=== PATIENT | male | born 1980 | race Two or more races ===

== ENCOUNTER → 2017-01-01 | Outpatient (CLI) | payer OTHER ==
[~2017-01-01] MED LIST: None per pt
== END | disposition home or self-care (01) ==
LOC: STAR 15:24
PROVIDERS: ATTEND Surgery
DX: Z02.9 Encounter for administrative examinations, unspecified (principal)

== ENCOUNTER 2017-01-10 06:01 | Day surgery (SDC) | payer OTHER ==
[~2017-01-10] VITALS: Ht 175.3 cm; Wt 76.4 kg
[2017-01-10 06:57] VITALS: BP 116/73
[2017-01-10] MEDS ORDERED: LACTATED RINGERS 1,000 ML IV SCH (06:59)
[2017-01-10] MEDS ORDERED: LIDOCAINE 1%, 2ML SQ PRN (07:00)
[2017-01-10] MEDS ORDERED: EPINEPHRINE 1 MG/ML, 1ML ONE (08:32)
[2017-01-10] MEDS ORDERED: BUPIVACAINE/PF 0.5% ONE ×2 (08:32)
[2017-01-10] MEDS ORDERED: FENTANYL PF 100 MCG/2ML ONE ×2 (08:58)
[2017-01-10] MEDS ORDERED: MIDAZOLAM 1 MG/ML, 2ML ONE (08:59)
[2017-01-10] MEDS ORDERED: ROCURONIUM 10 MG/ML ONE (09:00)
[2017-01-10] MEDS ORDERED: DEXAMETHASONE 4 MG/ML, 1ML ONE (09:00)
[2017-01-10] MEDS ORDERED: NEOSTIGMINE 1 MG/ML, 10ML ONE (09:00)
[2017-01-10] MEDS ORDERED: SUCCINYLCHOLINE 20 MG/ML, 10ML ONE (09:00)
[2017-01-10] MEDS ORDERED: CEFAZOLIN 1,000 MG ONE (09:00)
[2017-01-10] MEDS ORDERED: GLYCOPYRROLATE 0.2MG/1ML, 5ML ONE (09:00)
[2017-01-10] MEDS ORDERED: ONDANSETRON 2MG/ML, 2ML ONE ×2 (09:00→10:11)
[2017-01-10] MEDS ORDERED: PROPOFOL 10 MG/ML, 20ML ONE (09:00)
[2017-01-10] MEDS ORDERED: LIDOCAINE-MPF 2% ,5ML ONE (09:02)
[2017-01-10] MEDS ORDERED: KETOROLAC 30 MG/1 ML ONE (09:16)
[2017-01-10] MEDS ORDERED: BUPIVACAINE/PF-EPI 0.5% 1:200K INFIL ONE (09:26)
[2017-01-10] MEDS ORDERED: DIAZEPAM 5 MG/ML, 2ML IVPush PRN (09:30)
[2017-01-10] MEDS ORDERED: HYDROmorphone 1 MG/ML, 1ML IV PRN (09:30)
[2017-01-10] MEDS ORDERED: LABETALOL 5MG/ML, 20ML IV PRN (09:30)
[2017-01-10] MEDS ORDERED: OXYcodone 5 MG/5 ML ORAL.SOL UDC PO PRN (09:30)
[2017-01-10] MEDS ORDERED: FENTANYL PF 100 MCG/2ML IV PRN (09:30)
[2017-01-10] MEDS ORDERED: ALBUTEROL/IPRATROPIUM 2.5MG/0.5MG, 3 ML NPPB PRN (09:30)
[2017-01-10] MEDS ORDERED: PROMETHAZINE 25 MG/ML, 1ML IV PRN (09:30)
[2017-01-10] MEDS ORDERED: MIDAZOLAM 1 MG/ML, 2ML IV PRN (09:30)
[2017-01-10] MEDS ORDERED: ACETAMINOPHEN 325 MG TABLET PO PRN (09:30)
[2017-01-10] MEDS ORDERED: hydrALAzine 20 MG/ML, 1ML IV PRN (09:30)
[2017-01-10] MEDS ORDERED: ONDANSETRON 2MG/ML, 2ML IVPush PRN (09:30)
[2017-01-10] MEDS: MEPERIDINE/PF 25MG/0.5ML IVPush PRN ×2 (10:10→10:20)
[2017-01-10] MEDS ORDERED: OXYcodone 5 MG/5 ML ORAL.SOL UDC ONE (10:11)
[2017-01-10] MEDS ORDERED: MEPERIDINE/PF 25MG/0.5ML ONE (10:11)
== END 2017-01-10 13:10 ==
LOC: EDBD → OUT 06:01
PROVIDERS: ATTEND Surgery
DX: K40.90 Unilateral inguinal hernia, without obstruction or gangrene, not specified as recurrent (principal)
CPT/HCPCS: 49650; C1781; J0171; J0690; J1100; J1885; J2175; J2250; J2405; J2704; J2710; J3010; J3490; J7120; S2900; J0330